=== PATIENT | female | born 1985 | race Caucasian/White ===

== ENCOUNTER → 2017-04-03 | Outpatient (CLI) | payer BC ==
[~2017-04-03] MED LIST: HYDR25TA PO; L-NO1TBD6 PO
--- NOTE | 2017-04-03 09:24 | RAD ---
Complete abdomen ultrasound study Indications: Left upper quadrant abdominal pain for one and one half weeks. Findings: The pancreas is homogeneous without focal enlargement. The gallbladder is surgically absent. The extra hepatic bile duct measures 2.2 mm in caliber which is normal. The intrahepatic portion of the IVC is unremarkable. No focal aneurysmal dilatation of the abdominal aorta is seen. The liver measures 15 cm in length. No focal hepatic mass is seen. The length of the right kidney is 10.5 cm and the length of the left kidney is 11.9 cm. No hydronephrosis or renal mass or perinephric fluid collection is seen on either side. The spleen measures 9 cm in length and is normal. No ascites is evident. IMPRESSION: Unremarkable abdomen ultrasound study.
--- NOTE | 2017-04-03 11:32 | RAD ---
EXAM: Lumbar spine 2 or 3 views. HISTORY: Left lower back pain and left flank pain. COMPARISON: None. FINDINGS: Cholecystectomy clips are noted. A pacemaker is partially visualized. There is a mild S-shaped thoracolumbar scoliosis, levoconvex in the lumbar levels. Vertebral body heights are maintained, and no fractures are identified. Intervertebral disc heights are maintained. IMPRESSION: 1. Mild S-shaped thoracolumbar scoliosis.
== END | disposition home or self-care (01) ==
LOC: US 07:47
PROVIDERS: ATTEND Nurse Practitioner Family
DX: M41.85 Other forms of scoliosis, thoracolumbar region (principal); R10.12 Left upper quadrant pain; R11.0 Nausea
CPT/HCPCS: 72100; 76700

== ENCOUNTER → 2018-04-24 | Outpatient (CLI) | payer BC ==
--- NOTE | 2018-04-24 16:02 | KCIC ---
Left breast ultrasound: Reason for examination: Left breast pain and lump in the upper outer quadrant. Pacemaker present. Ultrasound examination was performed with attention to the upper outer quadrant in the area of clinical concern and at the left axilla. Pacemaker is present at the 3:00 position 9 cm from the nipple. There is some patchy dense fibroglandular tissue present in the 2:00 position 8 cm from the nipple. There are no cystic or solid nodules. No abnormal appearing lymph nodes are seen in the left axilla. IMPRESSION: Pacemaker at the 3:00 position. Dense patches of fibroglandular tissue in the 2:00 position but no focal masses seen. Recommend clinical follow-up. BI-RADS Category 2: Benign. "Our facility is accredited by the [employer] Mammography Program." This patient's information has been entered into a reminder system for the patient to be notified with the results of her examination and a target date for the next mammogram. Electronically signed by: Jillian Lopez MD (04/24/2018 3:58 PM) [id number]
== END | disposition home or self-care (01) ==
LOC: KCIC US 11:02
PROVIDERS: ATTEND Obstetrics & Gynecology
DX: N64.4 Mastodynia (principal)
CPT/HCPCS: 76641